=== PATIENT | male | born 1950 | race African-American/Black ===

== ENCOUNTER 2024-08-03 14:40 | Emergency (ER) | payer BC, MEDICARE, OTHER ==
[~2024-08-03] VITALS: Ht 175.3 cm; Wt 81.0 kg
[~2024-08-03 14:40] MED LIST: ASPI-1497 PO; ATOR-2 PO; LISI1TAB13 PO
[2024-08-03 14:50] VITALS: O2SAT 97
[2024-08-03] MEDS ORDERED: LIDO700A30 TP (16:41)
[2024-08-03] MEDS ORDERED: IBUP-2029 MT (16:41)
[2024-08-03] MEDS ORDERED: METH-653 MT (16:41)
[2024-08-03] MEDS: KETOROLAC 30MG/ML VIAL IM ONE (17:02)
[2024-08-03] MEDS: HYDROCODONE/ACETAMINOPHEN 5/325MG TABLET PO ONE (17:02)
[2024-08-03 17:03] VITALS: BP 133/70; PULSE 64; RESP 18; TEMP 36.72516; O2SAT 97
== END 2024-08-03 18:13 | disposition home or self-care (01) ==
LOC: ER 14:40
DX: S09.90XA Unspecified injury of head, initial encounter (principal); S20.212A Contusion of left front wall of thorax, initial encounter; S63.502A Unspecified sprain of left wrist, initial encounter; E78.00 Pure hypercholesterolemia, unspecified; I10 Essential (primary) hypertension; Z79.899 Other long term (current) drug therapy; Z96.659 Presence of unspecified artificial knee joint; W18.2XXA Fall in (into) shower or empty bathtub, initial encounter; Y93.89 Activity, other specified; Y92.89 Other specified places as the place of occurrence of the external cause; Y99.8 Other external cause status
CPT/HCPCS: 99285; 70450; 71101; 73110; 93005; 96372; J1885